=== PATIENT | female | born 1970 | race Caucasian/White ===

== ENCOUNTER 2021-05-08 08:25 | Day surgery (SDC) | payer MEDICAID ==
[2021-05-06 13:04] LABS: BASOPHILS % (AUTO) 0.5 % (0-1); EOSINOPHILS % (AUTO) 0.8 % (0-6); HEMATOCRIT 38.8 % (35.0-45.0); LYMPHOCYTES # (AUTO) 1.8 X10'3 (1.1-4.8); LYMPHOCYTES % (AUTO) 29.8 % (21-51); MEAN CORPUSCULAR HGB CONC 33.6 g/dL (33.0-36.5); MEAN CORPUSCULAR VOLUME 95.4 FL (78-98); MEAN PLATELET VOLUME 7.7 FL (7.4-10.4); MONOCYTES # (AUTO) 0.5 X10'3 (0-0.9); NEUTROPHILS # (AUTO) 3.6 X10'3 (1.8-7.7); NEUTROPHILS % (AUTO) 59.9 % (42-75); PLATELET COUNT 292 X10'3 (140-440); RED BLOOD COUNT 4.07 X10'6 (4.20-5.60); RED CELL DISTRIBUTION WIDTH 13.1 % (11.5-14.5); WHITE BLOOD COUNT 6.1 X10'3 (4.5-11.0)
[2021-05-06 13:17] LABS: PARTIAL THROMBOPLASTIN TIME 24 SECONDS (22-32)
[2021-05-06 13:23] LABS: ALANINE AMINOTRANSFERASE 23 U/L (12-78); ALBUMIN 3.7 G/DL (3.4-5.0); ALKALINE PHOSPHATASE 70 IU/L (46-116); ANION GAP 9 (8-16); ASPARTATE AMINO TRANSFERASE 16 U/L (10-37); BILIRUBIN,TOTAL 0.3 MG/DL (0.1-1.0); BLOOD UREA NITROGEN 18 MG/DL (7-18); BUN/CREATININE RATIO 17.5 (6.6-38.0); CALCIUM 8.5 MG/DL (8.5-10.1); CHLORIDE 106 MMOL/L (99-107); CREATININE 1.03 MG/DL (0.40-0.90); GLUCOSE 109 MG/DL (70-104); POTASSIUM 4.2 MMOL/L (3.5-5.1); SODIUM 140 MMOL/L (135-145); TOTAL CARBON DIOXIDE 25.1 MMOL/L (24-32); TOTAL PROTEIN 7.3 G/DL (6.4-8.2); eGFR 56 ML/MIN
[2021-05-08] VITALS (12 sets, daily range): BP systolic 93–122; BP diastolic 45–73
[~2021-05-08] VITALS: Ht 157.5 cm; Wt 61.9 kg
[~2021-05-08 08:25] MED LIST: AZIT500T9 PO; CYCL-1 PO; FAMO-128 PO; FLUO40CA10 PO; HYDR-4353 PO; PRAV80TA3 PO; PRO100T PO; PSEU-259 PO; TOPI200T PO
[2021-05-08] MEDS ORDERED: MONT-40 PO (08:54)
[2021-05-08] MEDS ORDERED: TRAZ-251 PO (08:54)
[2021-05-08] MEDS ORDERED: SUMA50TA17 PO (08:54)
[2021-05-08] MEDS ORDERED: MELA1LIQ PO (08:54)
[2021-05-08] MEDS ORDERED: normal saline 1,000 ML IV SCH (09:30)
[2021-05-08] MEDS ORDERED: nitroGLYCERIN 0.4mg SUBLingual tab SL PRN ×2 (09:30→12:05)
[2021-05-08] MEDS ORDERED: LORazepam 0.5 MG tablet PO PRN (09:30)
[2021-05-08] MEDS ORDERED: diphenhydrAMINE 25mg capsule PO PRN (09:30)
[2021-05-08] MEDS ORDERED: midazolam 1 mg/ML 2ml injection ONE ×2 (10:10→10:13)
[2021-05-08] MEDS ORDERED: LIDOcaine 1% (10mg/ml)w/preservative injection 20ml MDV ONE ×2 (10:11→10:14)
[2021-05-08] MEDS ORDERED: fentaNYL/PF 50MCG/1 ML 2ML syringe ONE ×2 (10:11→10:13)
[2021-05-08] MEDS ORDERED: iohexol 350MG/ML 100ml bottle IV ONE ×2 (10:11→10:13)
[2021-05-08] MEDS ORDERED: iohexol 350 MG/ML 50ML vial IV ONE ×2 (10:11→10:13)
[2021-05-08] MEDS ORDERED: OXAZEpam 15mg capsule PO PRN (12:05)
[2021-05-08] MEDS ORDERED: proCHLORperazine 10 MG/2 ml inj IV PRN (12:05)
[2021-05-08] MEDS ORDERED: HYDROcodone/acetaminophen 10/325mg tab PO PRN (12:05)
[2021-05-08] MEDS ORDERED: ondansetron/PF 4mg/2ml inj IV PRN (12:05)
[2021-05-08] MEDS ORDERED: HYDROcodone/acetaminophen 5mg/325mg tablet PO PRN (12:05)
[2021-05-08] MEDS ORDERED: normal saline 1000ml 1,000 ML IV SCH (12:05)
== END 2021-05-08 17:00 | disposition home or self-care (01) ==
LOC: SSTAY O 08:25
PROVIDERS: ATTEND Internal Medicine Cardiovascular Disease
DX: R94.39 Abnormal result of other cardiovascular function study (principal); I25.10 Atherosclerotic heart disease of native coronary artery without angina pectoris; F31.9 Bipolar disorder, unspecified; E78.5 Hyperlipidemia, unspecified; J44.9 Chronic obstructive pulmonary disease, unspecified; Z87.891 Personal history of nicotine dependence; Z79.899 Other long term (current) drug therapy; Z79.01 Long term (current) use of anticoagulants; Z88.0 Allergy status to penicillin; Z88.8 Allergy status to other drugs, medicaments and biological substances; Z88.1 Allergy status to other antibiotic agents
CPT/HCPCS: 36415; 71046; 80053; 85025; 85610; 85730; 93005; 93458; 99152; 99153; C1760; C1769; J1644; J2250; J3010; J3490; J7030; Q0163; Q9967; A4620; A6258

== ENCOUNTER 2024-01-19 05:55 | Day surgery (SDC) | payer BC, MEDICAID ==
[2024-01-19] VITALS (10 sets, daily range): BP systolic 105–145; BP diastolic 44–79; PULSE 69–92; RESP 10–16; TEMP 97.5; O2SAT 95–98
[~2024-01-19] VITALS: Ht 157.5 cm; Wt 58.5 kg
[~2024-01-19 05:55] MED LIST changes: +ASPI1TAB2 PO; -AZIT500T9 PO; +CALCIUM/VIT D3; -CYCL-1 PO; +DOCU-391 PO; +FLUO-330 PO; +HYDR-3964 PO; -HYDR-4353 PO; +IBUP-24 PO; +MODA200T48 PO; -PRO100T PO; -PSEU-259 PO; +SUMA50TA17 PO; +TRAZ-251 PO; +VITAMIN D3; +VITAMIN K; +[UNRECOGNIZED DRUG - CODE] PO
[2024-01-19] MEDS: tranexamic acid inj. 1,000 MG in normal saline IV soln 100ML IV ONE (06:34)
[2024-01-19] MEDS: ringers solution, lacted 1,000 ML IV SCH (06:34)
[2024-01-19] MEDS: famotidine 20mg tablet PO ONE (06:35)
[2024-01-19] MEDS ORDERED: bacitracin 15gm ointment TP ONE (07:17)
[2024-01-19] MEDS ORDERED: epiNEPHrine 1 mg/ml inj ONE (07:17)
[2024-01-19] MEDS: oxymetazoline 15 ML nasal spray NS ONE ×2 (07:34→11:45)
[2024-01-19] MEDS: cocaine 4% topical solution 4ml bottle TP ONE (08:00)
[2024-01-19] MEDS ORDERED: CLINDAMYCIN IV ONE (08:10)
[2024-01-19] MEDS ORDERED: SODIUM CHLORIDE IV ONE (08:10)
[2024-01-19] MEDS ORDERED: midazolam 1 mg/ML 2ml injection ONE (08:13)
[2024-01-19] MEDS ORDERED: fentaNYL /PF 50mcg/ml 5ml ampule ONE (08:14)
[2024-01-19] MEDS ORDERED: LIDOcaine 2% (20mg/ml) 5ml vial ONE (08:20)
[2024-01-19] MEDS ORDERED: propofol inj 20 ML IV ONE (08:20)
[2024-01-19] MEDS ORDERED: rocuronium 10mg/ml inj IV ONE (08:20)
[2024-01-19] MEDS ORDERED: LIDOcaine 1% W/epiNEPHrine 1:100,000 20ml vial ONE (08:50)
[2024-01-19] MEDS ORDERED: epiNEPHrine 1 mg/ml 30ml MDV ONE (08:50)
[2024-01-19] MEDS ORDERED: proCHLORperazine 10 MG/2 ml inj IV PRN (09:55)
[2024-01-19] MEDS ORDERED: meperidine/PF 25mg/ml syringe IV PRN ×3 (09:55)
[2024-01-19] MEDS ORDERED: labetalol 20mg/4ml (5mg/ml) syringe IV PRN (09:55)
[2024-01-19] MEDS ORDERED: morphine 4 MG/ML inj SYRINge IV PRN (09:55)
[2024-01-19] MEDS ORDERED: enalaprilat dihydrate 2.5mg/2ml vial IV PRN (09:55)
[2024-01-19] MEDS ORDERED: ringers solution, lacted 1,000 ML IV SCH (09:55)
[2024-01-19] MEDS ORDERED: ondansetron/PF 4mg/2ml inj IV PRN (09:55)
[2024-01-19] MEDS ORDERED: morphine 2 MG/ML inj. syringe IV PRN (09:55)
[2024-01-19] MEDS ORDERED: ondansetron/PF 4mg/2ml inj ONE (10:01)
--- NOTE | 2024-01-19 10:13 | NUR ---
Received from OR via [facility] TO RR 5, accompanied by Anesthesiologist DR MARINELLI and report given by Anesthesiologist. PT PRESENTS WITH ORAL AIRWAY ON 10L VIA MASK WITH SPO2 AT 98%, VSS. PT SHOWS NO S/S OF DISTRESS, RR EVEN AND UNLABORED. RIGHT NARE COTTONOID TAPED TO RIGHT CHEEK. NO S/S PF BLEEDING. PT IS ABLE TO MOVE ALL EXTREMITIES AND PALPABLE RADIAL AND PEDAL PULSES.
--- NOTE | 2024-01-19 10:17 | NUR ---
PATIENT USED TONGUE TO REMOVE ORAL AIRWAY: MASK APPLIED, PT TOLERATING WELL.
--- NOTE | 2024-01-19 10:50 | NUR ---
REMOVED RIGHT NARE COTTONOID. PT TOLERATED WELL. NO S/S OF BLEEDING
[2024-01-19] MEDS: mupirocin 2% nasal ointment 1gm UD NS ONE (11:35)
[2024-01-19] MEDS: salt irrigation nasal spray 45 ML SPRAY NS ONE (11:35)
--- NOTE | 2024-01-19 11:43 | NUR ---
PT HAS MET D/C CRITERIA. IV D/C'D. VSS. GAUZE UNDER NARES CDI WITH NASAL DRESSING SHI INTACT. NO S/S OF BLEEDING. I HAVE REVIEWED D/C INSTRUCTIONS WITH PATIENT AND , QUIANA AND BOTH VERBALIZED UNDERSTANDING OF INSTRUCTIONS. ALL QUESTIONS, COMMENTS, AND CONCERNS WERE ANSWERED AT THIS TIME. OCEAN SPRAY AND BACTROBAN COMPLETED BEFORE D/C AND GAUZE CHANGED, NO S/S OF BLEEDING. PT WAS ABLE TO GET DRESSED WITH ASSISTANCE AND AMBULATED TO W/C WITHOUT LOSS OF BALANCE. PT WAS WHEELED OUT TO PRIVATE VEHICLE AND TRANSFERRED INTO VEHICLE WITHOUT INCIDENT. PATIENT D/C HOME WITH ALL BELONGINGS.
[2024-01-19] MEDS: mupirocin 2% ointment 22GM ONE (11:44)
[2024-01-19] MEDS: Thrombin (Bovine) 5,000 unit vial TP ONE (11:46)
[2024-01-19] MEDS: LIDOcaine 1% W/epiNEPHrine 1:100,000 20ml vial ONE (11:47)
[2024-01-19] MEDS: epiNEPHrine 1 mg/ml 30ml MDV ONE (11:48)
== END 2024-01-19 11:43 | disposition home or self-care (01) ==
LOC: PAS 05:55
PROVIDERS: ATTEND Otolaryngology
DX: J32.9 Chronic sinusitis, unspecified (principal); J45.909 Unspecified asthma, uncomplicated; E78.5 Hyperlipidemia, unspecified; K21.9 Gastro-esophageal reflux disease without esophagitis; G47.33 Obstructive sleep apnea (adult) (pediatric); G43.909 Migraine, unspecified, not intractable, without status migrainosus; F32.A Depression, unspecified; I25.2 Old myocardial infarction; M19.90 Unspecified osteoarthritis, unspecified site; Z85.820 Personal history of malignant melanoma of skin; Z79.1 Long term (current) use of non-steroidal anti-inflammatories (NSAID); Z79.82 Long term (current) use of aspirin; Z79.891 Long term (current) use of opiate analgesic; Z79.899 Other long term (current) drug therapy; Z96.641 Presence of right artificial hip joint; Z98.51 Tubal ligation status; Z88.1 Allergy status to other antibiotic agents; Z88.8 Allergy status to other drugs, medicaments and biological substances
CPT/HCPCS: 30140; 31253; 31267; 61782; 82948; 87070; 87075; 87102; A6402; J0171; J1100; J2250; J2405; J2704; J2710; J3010; J3490; J7030; J7050; J7120; Z7506; Z7508; Z7512; 87076; 87077; 87186; A4618; A6449; A7000

== ENCOUNTER 2025-02-23 08:27 | Outpatient (CLI) | payer MEDICAID ==
[~2025-02-23 08:27] MED LIST changes: -PRAV80TA3 PO; +PRAV80TA75 PO
--- NOTE | 2025-02-23 11:20 | RADIOLOGY REPORT ---
Exam: CT CT ABDOMEN PELVIS History: CALCULUS OF KIDNEY COMPARISON: None Technique: Multidetector spiral CT of the abdomen and pelvis was performed from lung bases to pubic symphysis. Intravenous contrast was administered during this examination. Portal venous imaging was obtained. Axial, coronal and sagittal multiplanar reformats were performed by the technologist on a separate workstation. Radiation Dose : 1. Abdomen/Pelvis: CTDIvol 16.31 mGy, DLP 808.92 ] mGy*cm. Findings: Lung Bases: No acute or significant lung base finding. Normal heart size. No pleural or pericardial effusion. Liver: The liver is normal in size. No focal lesions. Normal hepatic vascular enhancement. Gallbladder and biliary Tree: Unremarkable Spleen: Unremarkable Pancreas: The pancreas is normal in appearance without focal lesions or abnormal enhancement. Adrenal Glands: Unremarkable Kidneys: Tiny sub 3 mm bilateral nonobstructing renal calculi (1 on the right and 4 on the left). No hydronephrosis. Bladder: Unremarkable Bowel: The stomach is grossly normal in appearance. Small bowel and colon are normal in caliber and distribution. Normal appendix is visualized in the right lower quadrant without findings of appendicitis. Ascites: Absent Lymphadenopathy: No mesenteric, retroperitoneal or periportal lymphadenopathy. Abdominal wall and Mesentery: Unremarkable. Vasculature: The visualized abdominal aorta is normal in size and caliber. Abdominal and pelvic vessels demonstrate normal enhancement. Pelvic Organs: Unremarkable Musculoskeletal: No aggressive focal bony lesions, acute fractures or dislocation. Right hip arthroplasty. IMPRESSION: Few sub 3 mm bilateral nonobstructing renal calculi. Radiation optimization: All CT scans at this facility use at least one of these dose optimization techniques: automated exposure control mA and/or kV adjustment per patient size (includes targeted exams where dose is matched to clinical indication) or iterative reconstruction.
== END 2025-02-23 23:59 | disposition home or self-care (01) ==
LOC: RAD 08:27
PROVIDERS: ATTEND Student in an Organized Health Care Education/Training Program
DX: N20.0 Calculus of kidney (principal); Z96.641 Presence of right artificial hip joint
CPT/HCPCS: 74176